=== PATIENT | female | born 1945 | race Caucasian/White ===

== ENCOUNTER 2016-03-16 09:15 | Outpatient (CLI) ==
[2014-02-26 15:01] VITALS: BMI 38.9
--- NOTE | 2016-03-16 10:47 | US ---
EXAM: ULTRASOUND LOWER EXTREMITY VENOUS DOPPLER EXAM HISTORY: Edema. FINDDINGS: Bilateral lower extremity venous Doppler exam. Real time hughes-scale, Doppler spectral an alysis and color-flow Doppler imaging performed. The veins targeted for evaluation include the comm on femoral, greater saphenous, profundus, femoral, popliteal, peroneal, anterior tibial and posterio r tibial. The anterior tibial veins were not seen bilaterally. The evaluated veins demonstrated nor mal spontaneous flow and compression without evidence of thrombosis. IMPRESSION: Some limitations as described. No venous thrombosis identified within the areas evaluated.
== END 2016-03-16 09:16 | disposition home or self-care (01) ==
LOC: RAD 09:15
PROVIDERS: ATTEND Family Medicine
DX: R60.0 Localized edema (principal)

== ENCOUNTER 2016-03-29 08:55 | Outpatient (CLI) ==
[2014-02-26 15:01] VITALS: BMI 38.9
--- NOTE | 2016-03-29 10:19 | DI ---
EXAM: Right wrist, three views, 03/29/2016 HISTORY: Pain. Injury COMPARISON: None. FINDINGS / IMPRESSION: Normal anatomic alignment. The osseous structures appear intact. There is no evidence of fracture or dislocation. Chronic osteoarthritic degenerative change. Degenerative c hanges appear most severe at the level of the basilar joint. There is loss of joint space with maximiliano cular sclerosis. Subchondral cyst formation is present within the scaphoid and capitate. No acute underlying osseous abnormality.
--- NOTE | 2016-03-29 10:19 | DI ---
EXAM: Four views of the left knee HISTORY: Left knee pain post injury. COMPARISON: None FINDINGS: There is medial compartmental narrowing with osteophyte formation. The lateral compartmen t is normal with mild osteophyte formation. The patella is normal in position with small osteophyte s. The soft tissues are unremarkable. There is no displaced fracture or dislocation. IMPRESSION: Tricompartmental left knee degenerative disease with no acute abnormality or displaced fracture.
== END 2016-03-29 08:56 | disposition home or self-care (01) ==
LOC: RAD 08:55
PROVIDERS: ATTEND Family Medicine
DX: M25.531 Pain in right wrist (principal); M25.562 Pain in left knee; W19.XXXA Unspecified fall, initial encounter